=== PATIENT | female | born 1970 | race Caucasian/White ===

== ENCOUNTER 2024-02-14 11:20 | Emergency (ER) | payer OTHER, SELFPAY ==
[2024-02-14 11:38] VITALS: BP 158/104; PULSE 85; RESP 18; TEMP 36.8; O2SAT 97; BMI 42.5
--- NOTE | 2024-02-14 11:58 | XRR_ITS ---
PROCEDURE INFORMATION: Exam: XR Chest Exam date and time: 02/14/2024 12:06 PM Age: 54 years old Clinical indication: Shortness of breath; Additional info: SOB TECHNIQUE: Imaging protocol: Radiologic exam of the chest. Views: 1 view. COMPARISON: No relevant prior studies available. FINDINGS: Lungs: Lungs are clear. Pleural spaces: There is no pleural effusion or pneumothorax. Heart/Mediastinum: cardiomediastinal contours are unremarkable given AP projection and leftward patient rotation. Diaphragm: There is mild asymmetric elevation of the right hemidiaphragm. Bones/joints: Bones are unremarkable. XR/XR chest 1V portable [id number] IMPRESSION: No acute findings.
--- NOTE | 2024-02-14 12:03 | ED_ITS ---
HPI - General Adult 2 General: Chief complaint: General Medical Stated complaint: overall general pain Time Seen by Provider: 02/14/24 11:36 Source: patient Mode of arrival: ambulatory Limitations: no limitations History of Present Illness: 54-year-old female states over the last 2 days she has been having generalized fatigue and pain. States she is felt like she had flulike illness states she has had bodyaches all over some mild dyspnea she denies any vomiting or diarrhea has had some nausea. She denies any worse improving factors denies any cough. Associated symptoms: Reports malaise; Deny chest pain, dyspnea, headache(s), nausea, rash or vomiting Related Data Home Medications Medication Instructions Recorded Confirmed acetaminophen 500 mg tablet 500 mg PO QID PRN Pain 02/14/24 02/14/24 ibuprofen 200 mg tablet (Advil) 200 mg PO Q6H PRN Pain 02/14/24 02/14/24 naproxen sodium 220 mg tablet 220 mg PO Q12H PRN Pain 02/14/24 02/14/24 (Aleve) Previous Rx's Medication Instructions Recorded cephalexin 500 mg capsule 500 mg PO TID 7 days #21 caps 02/14/24 Review of Systems 2 Const: Reports: fatigue and malaise; Denies: fever(s), chills, body aches or change in appetite ENMT: Denies: throat pain or dental pain Card: Denies: chest pain Resp: Denies: dyspnea GI: Denies: abdominal pain, nausea, vomiting or diarrhea Musc: Denies: neck pain or back pain Skin/Breast: Denies: rash Neuro: Denies: headache(s) Physical Exam 2 Const: COMMON NORMALS: no acute distress, patient oriented x3 and healthy appearing HENMT: COMMON NORMALS: normocephalic and atraumatic HEAD & SCALP: n ormocephalic and atraumatic Eye: COMMON NORMALS: conjunctivae normal CONJUNCTIVA: Yes conjunctivae normal Neck/C-Spine: COMMON NORMALS: full ROM and supple Chest: COMMONS NORMALS: normal inspection of the chest Resp: COMMON NORMALS: normal respiratory effort, No retractions, No use of accessory muscles and clear to auscultation bilaterally AUSCULTATION: clear to auscultation bilaterally Cardio: COMMON NORMALS: regular rate, regular rhythm and No murmurs present (Cardio) RATE: regular rate RHYTHM: regular rhythm Extremity: COMMON NORMALS: normal to inspection and full ROM Neuro: COMMON NORMALS: patient oriented x3, moves all extremities and no focal motor deficits Psych: COMMON NORMALS: mental status grossly normal, Normal thought process present and cooperative THOUGHT PROCESS: Normal thought process present Skin: COMMON NORMALS: no rashes or lesions noted and no wounds GENERAL SKIN EXAM: no rashes or lesions noted Course 2 Vital Signs: Vital signs: Vital Signs Temperature 98.3 F 02/14/24 11:38 Pulse Rate 76 02/14/24 12:57 Respiratory Rate 14 02/14/24 12:57 Blood Pressure 140/98 02/14/24 12:57 Pulse Oximetry 97 02/14/24 12:57 Oxygen Delivery Me thod Room Air 02/14/24 12:57 MDM - General Adult Medical Decision Making Patient presents here with generalized fatigue and pain patient's blood work here is normal she does have acute cystitis no signs of sepsis we will start antibiotics she stable for discharge follow-up PCP return if worsening. Medical Records I reviewed the patient's medical records. Lab Data I reviewed the patient's lab results. 02/14/24 12:15 02/14/24 12:15 Radiology Impressions Chest X-Ray 02/14/24 11:58 IMPRESSION: No acute findings. Laboratory Results WBC 7.73 10^3/uL (3.29-11.43) 02/14/24 12:15 RBC 4.91 10^6/uL (3.85-5.65) 02/14/24 12:15 Hgb 14.50 g/dL (11.27-16.99) 02/14/24 12:15 Hct 44.9 % (36-47) 02/14/24 12:15 MCV 91.4 fl (85-98) 02/14/24 12:15 MCH 29.5 pg (27-33) 02/14/24 12:15 MCHC 32.3 g/dL (30-55) 02/14/24 12:15 RDW 14.5 % (12.1-15.1) 02/14/24 12:15 Plt Count 332 10^3/cmm (157-399) 02/14/24 12:15 MPV 9.4 fL (7.4-10.4) 02/14/24 12:15 Neut % (Auto) 54.2 % 02/14/24 12:15 Lymph % (Auto) 34.4 % 02/14/24 12:15 Wheeler % (Auto) 5.4 % 02/14/24 12:15 Eos % (Auto) 5.0 % 02/14/24 12:15 Baso % (Auto) 0.9 % 02/14/24 12:15 Neut # (Auto) 4.18 10^3/uL (1.8-7.7) 02/14/24 12:15 Lymph # (Auto) 2.7 10^3/uL (0.8-4.8) 02/14/24 12:15 Wheeler # (Auto) 0.4 10^3/uL (0.2-0.9) 02/14/24 12:15 Eos # (Auto) 0.4 10^3/uL (0.0-0.8) 02/14/24 12:15 Baso # (Auto) 0.1 10^3/uL (0.0-0.1) 02/14/24 12:15 Nucleated RBC % (auto) 0 % 02/14/24 12:15 Nucleated RBCs # 0.0 /100WBC 02/14/24 12:15 Sodium 139 mmol/L (136-145) 02/14/24 12:15 Potassium 4.1 mmol/L (3.5-5.1) 02/14/24 12:15 Chloride 104 mmol/L (98-107) 02/14/24 12:15 Carbon Dioxide 25 mmol/L (22-29) 02/14/24 12:15 Anion Gap 14.1 (5-19) 02/14/24 12:15 BUN 11 mg/dL (6-20) 02/14/24 12:15 Creatinine 0.7 mg/dL (0.5-0.9) 02/14/24 12:15 GFR Calculation 87.5 mL/min (90-130) L 02/14/24 12:15 Glucose 100 mg/dL (65-115) 02/14/24 12:15 Calculated Osmolality 287 mOsm/kg (285-295) 02/14/24 12:15 Calcium 8.8 mg/dL (8.5-10.5) 02/14/24 12:15 Total Bilirubin 0.5 mg/dL (0.15-1.2) 02/14/24 12:15 AST 16 U/L (0-32) 02/14/24 12:15 ALT 14 U/L (0-33) 02/14/24 12:15 Alkaline Phosphatase 121 U/L (35-105) H 02/14/24 12:15 Troponin T Baseline < 6 ng/L (0-10) 02/14/24 12:15 Total Protein 6.6 g/dL (6.6-8.7) 02/14/24 12:15 Albumin 4.3 g/dL (3.5-5.2) 02/14/24 12:15 Globulin 2.3 g/dL (1.3-4.6) 02/14/24 12:15 Urine Color Yellow (Yellow) 02/14/24 13:15 Urine Appearance Clear (CLEAR) 02/14/24 13:15 Urine pH 5.5 (5-7) 02/14/24 13:15 Ur Specific [place] 1.020 (1.005-1.030) 02/14/24 13:15 Urine Protein Trace (Negative) A 02/14/24 13:15 Urine Glucose (UA) Negative (Normal) 02/14/24 13:15 Urine Ketones Negative (Negative) 02/14/24 13:15 Urine Blood 1+ (Negative) A 02/14/24 13:15 Urine Nitrate Negative (Negative) 02/14/24 13:15 Urine Bilirubin Negative (Negative) 02/14/24 13:15 Urine Urobilinogen 1.0 mg/dL (Negative) 02/14/24 13:15 Ur Leukocyte Esterase 2+ (Negative) A 02/14/24 13:15 Urine RBC 3-5 /hpf (0-2) 02/14/24 13:15 Urine WBC 21-50 /hpf (0-5) H 02/14/24 13:15 Ur Squamous Epith Cells 6-10 /hpf (0-5) 02/14/24 13:15 Amorphous Sediment Not Reportable 02/14/24 13:15 Urine Bacteria 2+ /hpf (NONE) H 02/14/24 13:15 Hyaline Casts 0.81 /lpf 02/14/24 13:15 Coronavirus (PCR) Negative (Negative) 02/14/24 12:17 Influenza A (PCR) Negative (Negative) 02/14/24 12:17 Influenza Type B (PCR) Negative (Negative) 02/14/24 12:17 RSV (PCR) Negative (Negative) 02/14/24 12:17 All radiology interpretation(s) finalized by discharge EKG Data EKG 1: I personally reviewed and interpreted this EKG as follows: EKG interpretation date: 02/14/24 EKG interpretation time: 12:17 Interpretation: nsr hr [address] elevation qrs 96 qtc 394 Computer generated interpretation: Chest X-Ray 02/14/24 11:58 IMPRESSION: No acute findings. Discharge Plan Discharge Patient Disposition: Home Clinical Impression: Acute cystitis Condition: Stable Prescriptions: New cephalexin 500 mg capsule 500 mg PO TID 7 Days Qty: 21 0RF No Action acetaminophen [Tylenol Ex Str Rapid Release] 500 mg Tablet 500 mg PO QID PRN (Reason: Pain) ibuprofen [Advil] 200 mg Tablet 200 mg PO Q6H MDD ] PRN (Reason: Pain) naproxen sodium [Aleve] 220 mg Tablet 220 mg PO Q12H PRN (Reason: Pain) Discharge Orders: Discharge ED (Routine); Ordered 02/14/24 Ordered By: Eric Turpin Referrals: Aaron Hurtado MD [Family Provider] - Discharge Diet: Advance as tolerated Discharge Activity: Resume usual activity Patient Instructions: Urinary Tract Infection in Women (ED) Coding Level of Care Code ED [employer]ten [employer] Pourer for Tremayne Serrato
--- NOTE | 2024-02-14 12:17 | ECG_ITS ---
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 Measurements Intervals [place] Rate: 68 P: -5 TN: 155 QRS: 19 QRSD: 96 T: 43 QT: 377 QTc: 401 Interpretive Statements SINUS RHYTHM No previous ECG available for comparison Electronically Signed On 02-15-2024 01:06:26 CDT by Jovita William M.D. [email or web address]
[2024-02-14 12:29] LABS: Basophils # 0.1 10^3/uL (0.0-0.1); Basophils % 0.9 %; Eosinophils # 0.4 10^3/uL (0.0-0.8); Hematocrit 44.9 % (36-47); Lymphocytes # 2.7 10^3/uL (0.8-4.8); Lymphocytes % 34.4 %; Mean Corpuscular HGB Conc 32.3 g/dL (30-55); Mean Corpuscular Hemoglobin 29.5 pg (27-33); Mean Corpuscular Volume 91.4 fl (85-98); Mean Platelet Volume 9.4 fL (7.4-10.4); Monocytes # 0.4 10^3/uL (0.2-0.9); Monocytes % 5.4 %; Neutrophils # 4.18 10^3/uL (1.8-7.7); Neutrophils % 54.2 %; Nucleated Red Blood Cells % 0 %; Platelet Count 332 10^3/cmm (157-399); Red Blood Count 4.91 10^6/uL (3.85-5.65); Red Cell Distribution Width 14.5 % (12.1-15.1); White Blood Count 7.73 10^3/uL (3.29-11.43)
[2024-02-14 12:46] LABS: Troponin(5th) Baseline < 6 ng/L (0-10)
[2024-02-14 12:57] VITALS: BP 140/98; PULSE 76; RESP 14; O2SAT 97
[2024-02-14 12:57] LABS: Alanine Aminotransferase 14 U/L (0-33); Albumin Level 4.3 g/dL (3.5-5.2); Alkaline Phosphatase 121 U/L (35-105); Anion Gap 14.1 (5-19); Aspartate Amino Transferase 16 U/L (0-32); Blood Urea Nitrogen 11 mg/dL (6-20); Calcium 8.8 mg/dL (8.5-10.5); Carbon Dioxide 25 mmol/L (22-29); Chloride 104 mmol/L (98-107); Creatinine Clr Calc Pharmacy 130.7952; Globulin 2.3 g/dL (1.3-4.6); Glomerular Filtration Rate 87.5 mL/min (90-130); Glucose 100 mg/dL (65-115); Osmolality Calculated 287 mOsm/kg (285-295); Potassium 4.1 mmol/L (3.5-5.1); Sodium 139 mmol/L (136-145); Total Bilirubin 0.5 mg/dL (0.15-1.2); Total Protein 6.6 g/dL (6.6-8.7)
[2024-02-14 13:01] VITALS: BP 115/91; PULSE 73; RESP 17; O2SAT 100
[2024-02-14 13:31] LABS: Covid PCR NEGATIVE (Negative); Influenza A NEGATIVE (Negative); Influenza B NEGATIVE (Negative); Respiratory Syncytial Virus Ce NEGATIVE (Negative)
[2024-02-14 13:33] LABS: Bilirubin Urine Negative (Negative); Blood Urine 1+ (Negative); Glucose Urine UA Negative (Normal); Ketones Urine Negative (Negative); Leukocyte Esterase Urine 2+ (Negative); Nitrate Urine Negative (Negative); Protein Urine Trace (Negative); Urine Appearance Clear (CLEAR); Urine Color Yellow (Yellow); pH Urine 5.5 (5-7)
[2024-02-14 13:38] LABS: Add Urine Microscopic? YES; Bacteria Urine 2+ /hpf; Hyaline Casts Urine 0.81 /lpf; WBC Urine 21-50 /hpf (0-5)
[2024-02-14 13:44] LABS: Add Urine Culture? Yes
--- NOTE | 2024-02-14 13:58 | ECG_ITS ---
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 Measurements Intervals [place] Rate: 66 P: 6 ND: 152 QRS: 27 QRSD: 93 T: 39 QT: 381 QTc: 401 Interpretive Statements SINUS RHYTHM Compared to ECG 02/14/2024 12:17:57 No significant changes Electronically Signed On 02-16-2024 01:10:10 CDT by Jovita William M.D. [email or web address]
[2024-02-14 14:01] VITALS: BP 123/100; PULSE 84; O2SAT 100
[2024-02-14 14:31] VITALS: BP 127/86; PULSE 74; O2SAT 98
[2024-02-14 14:35] VITALS: BP 127/86; PULSE 74; O2SAT 98
[2024-02-14 14:39] LABS: Troponin 5 2HR Delta 0.00001 ABS# (0-10)
== END 2024-02-14 14:35 | disposition home or self-care (01) ==
PROVIDERS: Emergency Provider Emergency Medicine; Family Provider Family Medicine
DX: N30.00 Acute cystitis without hematuria (principal); Z11.52 Encounter for screening for COVID-19
CPT/HCPCS: 0241U; 36415; 71045; 80053; 81001; 84484; 85025; 87086; 93005; 99285

== ENCOUNTER → 2024-09-07 18:18 | Outpatient (BNVA) | payer MEDICAID, SELFPAY | PROVIDERS: Family Provider Family Medicine; Visit Provider Registered Nurse Neonatal Intensive Care | DX: N39.0 Urinary tract infection, site not specified (principal) | CPT/HCPCS: 81000 ==

== ENCOUNTER → 2025-02-04 08:48 | Outpatient (BNVA) | payer MEDICAID, SELFPAY | PROVIDERS: Family Provider Family Medicine; Visit Provider Family Medicine | DX: Z13.6 Encounter for screening for cardiovascular disorders (principal) | CPT/HCPCS: 80053; 80061; 83036; 84439; 84443; 85025 ==

== ENCOUNTER 2025-02-13 14:00 | Outpatient (CLI) | payer MEDICAID, SELFPAY ==
--- NOTE | 2025-02-13 14:00 | MM_ITS ---
WS: [id number] BILATERAL 3D TOMOSYNTHESIS DIGITAL SCREENING MAMMOGRAPHY WITH CAD CLINICAL INFORMATION: screening HISTORY: Screening mammogram. No current complaints. COMPARISON: Outside study 2006 TECHNIQUE: Bilateral CC and MLO views. FINDINGS: Scattered fibroglandular densities bilaterally. No suspicious focal mass, asymmetry, calcifications, or architectural distortion. No evidence of malignancy. A few incidental calcifications. MM/MM scr tomosynthesis [id number] IMPRESSION: DENSITY: There are scattered areas of fibroglandular density. BI-RADS: 2 - Benign. FOLLOW UP: 1 Year Follow-up Recommend return to annual screening mammography.
== END 2025-02-13 14:01 | disposition home or self-care (01) ==
LOC: RAD 14:01
PROVIDERS: PCP Family Medicine; Visit Provider Family Medicine
DX: Z12.31 Encounter for screening mammogram for malignant neoplasm of breast (principal); R92.323 Mammographic fibroglandular density, bilateral breasts; R92.1 Mammographic calcification found on diagnostic imaging of breast
CPT/HCPCS: 77063; 77067

== ENCOUNTER → 2025-02-27 18:43 | Outpatient (BNVA) | payer MEDICAID, SELFPAY | PROVIDERS: PCP Family Medicine; Visit Provider Nurse Practitioner | DX: R52 Pain, unspecified (principal) | CPT/HCPCS: 87400 ==

== ENCOUNTER 2025-03-27 12:41 | Outpatient (CLI) | payer MEDICAID, SELFPAY ==
--- NOTE | 2025-03-27 14:12 | XRR_ITS ---
PROCEDURE INFORMATION: Exam: XR Thoracic Spine Exam date and time: 03/27/2025 2:18 PM Age: 55 years old Clinical indication: Pain in thoracic spine; BACK PAIN; Additional Info: chronic mid back pain TECHNIQUE: Imaging protocol: Radiologic exam of the thoracic spine. Views: 3 views. COMPARISON: CR XR chest 1V portable [id number] 02/14/2024 12:06 PM FINDINGS: Bones/joints: Mild nonspecific long segment dextroscoliosis of the thoracic spine centered at T9. There is also a mild degenerative kyphosis. Anterior marginal osteophytes are seen throughout the central thoracic spine with no evidence of acute compression fracture. There is some minimal anterior wedging at what is probably T8 and T9. No blastic or lytic bone lesions are present. Soft tissues: Unremarkable. Lungs: Visible lung rosen are unremarkable. Intraperitoneal space: Surgical clips are present in the right upper quadrant. XR/XR thoracic spine 3V* [id number] IMPRESSION: 1. No acute findings. 2. Degenerative changes throughout the thoracic spine, worse compared with prior CT from December 2011. Some minimal anterior wedging at T8 and T9 which may represent age-indeterminate mild wedge compression.
== END 2025-03-27 12:42 | disposition home or self-care (01) ==
LOC: RAD 12:43
PROVIDERS: PCP Family Medicine; Visit Provider Family Medicine
DX: M51.34 Other intervertebral disc degeneration, thoracic region (principal)
CPT/HCPCS: 72072